=== PATIENT | male | born 1940 | race Caucasian/White ===

== ENCOUNTER 2024-09-29 10:55 | Day surgery (SDC) | payer OTHER, SELFPAY ==
--- NOTE | 2024-09-28 13:21 | HP.FOC2 ---
Focused History & Physical
Chief Complaint
HPI:
Chief Complaint:
HPI / Indication for Planned Procedure:
83 yo WM h/o bradycardia, permanent afib with SVR HR 30-50bpm, JAILENE/CPAP, DM2, COPD, HLD having fatigue and dyspnea from her slow HR. She presents for SC PPM.
Echocardiogram 2018 normal LV RV function- Stress testing 2021, normal myocardial perfusion with normal LVEF 59%- Not currently on rate controlling agents. [id number]: 4 (age, hypertension, diabetes). On Xarelto 20 mg daily for stroke risk reduction
Relevant Past Medical History: COPD or Pulmonary Disease, Diabetes, Sleep Apnea and Other (Afib with SVR)
Relevant Social History: ETOH (rare) and Tobacco Use (former)
Relevant Family History: Negative
Relevant Past Surgical History: Positive for (cholecystectomy�����deviated septum repair�����cataract removal�����MOH's Surgery)
Review of Systems
Review of Pertinent Systems: All Systems Negative Except for the Following Positives (fatigue, sob, after root canal had some dizziness)
Medication
See Medication form for detailed medications: Yes
Medication List (including Herbals & OTC):
Albuterol Sulfate HFA 108 (90 Base) MCG/ACT Aerosol Solution 1 puff as needed Inhalation every 4 hrs prn
Rosy PRN
amLODIPine Besylate 5 MG Tablet 1 tablet Orally Once a Day
Centrum Silver daily
Chlorpheniramine Maleate 4 MG Tablet 1 tablet as needed Orally every 6 hrs
Dulera(Mometasone Furo-Formoterol Fum) 100-5 MCG/ACT Aerosol as directed Inhalation
Fenofibrate 48 MG Tablet 1 tablet Orally Once a day , Notes to Pharmacist: decreased to 48 mg on 01/12/23
Lasix(Furosemide) 20 MG Tablet 1 tablet Orally Once a day
metFORMIN HCl 1000 MG Tablet 1 tablet with a meal Orally Twice a Day
Ramipril 5 MG Capsule 1 capsule Orally Twice a Day
Tylenol Extra Strength(Acetaminophen) 500 MG Tablet 1 tablet as needed Orally every 6 hrs
Vitamin B12 1000 MCG Tablet Extended Release 1 tablet Orally Once a day
Xarelto 20 MG Tablet 1 tablet with food Orally Once a day
Medications Reviewed: Yes
Allergies and Reactions
Patient has Allergies: Yes
Noted Allergies and Reactions:
Bactrim: lip swelling - Allergy
Sulfa Antibiotics: lip swelling - Allergy
Pertinent Physical Exam
All Other Systems: Negative
Head/Neck: Normal
Lungs: Normal
Heart: Normal
Abdomen: Normal
Extremities: Other (+2 pitting edema b/l)
Neurological: Normal
Diagnosis / Assessment
Symptomatic bradycardia
Plan / Procedure
Recommendations:-With regard to patient's symptomatic bradycardia without AV heather blocking agents in the setting of permanent atrial fibrillation, patient to benefit from implantation of single-chamber pacemaker. Given patient's likely high pacing
burden, patient to benefit from conduction system pacing lead. Resume Xarelto per cardiology post procedure
Anesthesia/Sedation to be done by Anesthesia Provider: Yes
[2024-09-29] VITALS (14 sets, daily range): BP systolic 136–186; BP diastolic 63–110
[2024-09-29 11:44] LABS: Glucose - Point of Care 103 mg/dl (70-99)
--- NOTE | 2024-09-29 14:11 | ITS.CL.PACE ---
Addendum entered and electronically signed by Rao Jesus DO Cipriano 10/06/24 07:38:
Addendum:
Symptomatic non-reversible bradycardia
Sick sinus syndrome
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
Original Note:
Senior Linux Engineer - Pacemaker Implant
Pacemaker Implant
Procedure Report:
Primary Care Doctor: Aj Pittman MD
Primary Inside Sales Assistant: Connor Arboleda MD
Procedure Date: 09/27/2024
Name of procedure:
1. Placement of a single-chamber pacemaker with left bundle area pacing lead for conduction system pacing
2. Subclavian venography
History:
1. Patient is a pleasant 83-year-old male with a past medical history significant for permanent atrial fibrillation, sleep apnea on CPAP, diabetes mellitus type 2, COPD, hyperlipidemia, valvular heart disease, and symptomatic irreversible
bradycardia.
2. Please refer to H&P for complete history.
Indication:
Symptomatic irreversible bradycardia in the setting of permanent atrial fibrillation
Methods:
After informed consent was obtained, the patient was brought to the EP laboratory in a postabsorptive, nonsedated state. Peripheral IV access was established. Prophylactic antibiotics were administered prior to incision. Continuous ECG, blood
pressure, and pulse oximetry were initiated. Cardioversion patch electrodes were placed on the patient's chest and back. A grounding patch was applied to the skin. Sedation was administered by anesthesia services.
In order to define the extrathoracic portion of the subclavian vein and exclude significant venous obstruction or anomalous anatomy, subclavian venography was performed prior to the procedure. Using the patient's left peripheral IV, contrast was
injected and images were recorded. The left subclavian vein and SVC were found to be widely patent.
The left chest was prepared and draped in a sterile fashion. A time-out was performed. Local anesthesia was injected in the subcutaneous tissue in the infraclavicular area. An incision was made medial to the deltopectoral groove. The subcutaneous
tissue was dissected the level of the prepectoral fascia. A subcutaneous pocket was created. Under fluoroscopic guidance and with the assistance of the images from the venogram, 2 separate venipunctures were made using micropuncture and modified
Seldinger technique. These were performed in the extrathoracic portion of the subclavian vein. Guidewires were passed and two peel-away sheaths were placed, and used to advance leads into the circulation.
Fluoroscopy was used to determine likely anatomic site for left bundle branch pacing. The Medtronic C315 sheath was used to deliver the Medtronic 3830 Selectsecure pacing lead with the helix exposed just exposed from the sheath tip during continuous
monitoring when pacemapping the septum during gentle clockwise rotation to obtain a paced QRS morphology of a W pattern in lead V1. Once the suspected optimal site was identified, lead deployment was performed with several rapid rotations as paced
QRS morphology was intermittently monitored until a paced QRS complex in lead V1 demonstrated development of an R wave (qR or rSR). Unipolar pacing impedance dropped by approximately 100 ohms suggesting it had reached the left ventricular
subendocardial. Stable VEgm injury current is present throughout lead position and at end of case. Final unipolar pacing impedance is 1200 Ohms. Unipolar pacing threshold is stable at 0.75 V @ 0.4 ms. The patient had pre-existing narrow QRS. Final
conduction system paced QRS complex duration is 109 ms, LVAT is 81 ms, and peak V5 -> peak V1 timing is 33 ms. The C315 sheath was slit under fluoroscopy ensuring lead position and stability.
The pocket was flushed with antibiotic solution and hemostasis was assured. The generator was connected to the leads and placed inside the pocket. The device was sutured to the fascia. Antibiotic envelope was used. Floseal was applied. The wound
was closed with 3 running layers of absorbable suture, and steri-strips were applied. Dressing applied over steri-strips in standard fashion.
Following the procedure, the patient was taken to the recovery area in stable condition. A chest x-ray to be obtained post procedure as routine.
Lead parameters and device programming:
- RV Lead (Medtronic, Model 3830, #[id number]): Sensing 6.1 mV, Pacing threshold 0.5 V at 0.4 ms, Imp 931 ohm
- Device: Medtronic, Model W1SR01 pacemaker (#[id number]), programmed VVIR lower rate 70, upper tracking rate 130 ppm
Conclusions:
1. Successful placement of a dual-chamber pacemaker with conduction system pacing (LBBAP)
2. Subclavian venography
Recommendations:
1. Admit
2. Chest x-ray today; [facility] in AM
3. IV antibiotics while the patient is admitted.
4. OK to resume home medications as indicated; plan to resume OAC 09/30/2024 PM if site and patient stable
5. Pressure dressing to be removed in AM, aquacell to remain until wound check
6. Follow-up will be arranged in the office in 7-10 days post-discharge
Rao Cota DO
Clinical Cardiac Expenditure Requisition Clerk
cc: Aj Pittman MD; Connor Arboleda MD
--- NOTE | 2024-09-29 16:43 | CM ---
CM following for DC planning needs.
Met w/ patient at bedside to complete initial assessment.
Pt. resides w/ spouse in a private home. He is functionally indep. w/ ADLs, mobility without the use of any assisted device.
Antic. DC to home once medically stable, without needs.
[2024-09-29 17:10] LABS: Glucose - Point of Care 87 mg/dl (70-99)
[2024-09-29] MEDS: TYLENOL 650 MG PO (17:32)
--- NOTE | 2024-09-29 17:34 | PTCARENOTE ---
Pt received post pacer at 1615. Pt awake, alert and oriented. Left chest pacer pressure dressing dry and intact. Pt sent for CXR as ordered. OOB to chair for dinner.
.
[2024-09-29] MEDS: SYMBICORT 80/4.5 MCG INHALER 2 PUFF INH (17:52)
[2024-09-29] MEDS: ZESTRIL 10 MG PO (18:03)
--- NOTE | 2024-09-29 21:44 | PTCARENOTE ---
Received patient at change of shift. Patient sitting in chair, awake, alert, and oriented. Left chest wall clean, dry, and intact. No swelling, ecchymosis. Immobilizer on. BP 155/76, V-Paced 60s-70s, 97% on room air. Discussed activity restrictions
with pacer placement. Patient verbalized understanding. Call martinez within reach.
[2024-09-29] MEDS: NORVASC 5 MG PO (22:22)
[2024-09-29] MEDS: ANCEF 5 IV (22:22)
[2024-09-29 22:38] LABS: Glucose - Point of Care 82 mg/dl (70-99)
[2024-09-30] MEDS: TYLENOL 650 MG PO ×2 (00:38→06:04)
[2024-09-30] MEDS: ANCEF 5 IV (05:47)
[2024-09-30 06:01] VITALS: BP 152/74
[2024-09-30 06:54] LABS: Hematocrit 36.2 % (39.0-52.0); Hemoglobin 11.8 g/dL (13.0-18.0); Mean Corp Hgb Conc. 32.6 g/dL (33.0-37.0); Mean Corpuscular Hgb 28.8 pg (27.0-31.0); Mean Corpuscular Volume 88.3 fL (80.0-94.0); Mean Platelet Volume 11.1 fL (7.4-10.4); Platelet Count 152 10^3/uL (130-400); Red Cell Dist. Width 15.7 % (11.5-14.5); White Blood Cell Count 5.8 10^3/uL (4.8-10.8)
[2024-09-30 07:22] LABS: Blood Urea Nitrogen 16 mg/dl (9-20); Calcium 9.1 mg/dl (8.4-10.2); Carbon Dioxide 20 mmol/L (22-30); Chloride 108 mmol/L (98-107); Estimated Creatinine Clearance 73 ml/min; Glucose 87 mg/dl (70-99); Magnesium 2.2 mg/dl (1.6-2.3); Potassium 4.3 mmol/L (3.5-5.1); Sodium 141 mmol/L (135-145); eGFR > 60.00
[2024-09-30 07:27] VITALS: BP 152/87
[2024-09-30 07:30] LABS: Glucose - Point of Care 88 mg/dl (70-99)
[2024-09-30] MEDS: SYMBICORT 80/4.5 MCG INHALER 2 PUFF INH (07:46)
--- NOTE | 2024-09-30 07:53 | W.PN.CARDCBS ---
Addendum entered and electronically signed by Darien Guerra MD 09/30/24 15:03:
I saw and examined the patient on morning rounds.
The Technical Rep's note was reviewed and I agree with the note.
Comment: Briefly, 83-year-old gentleman who underwent single-chamber permanent pacemaker implant on 09/29/[address] Hurtado
Physical exam was unremarkable this morning and pacemaker site was clean dry and intact
Review of overnight telemetry shows ventricularly paced rhythm at 70 bpm
Stable for discharge from my perspective with plan to resume Xarelto this evening per electrophysiology recommendations
Rest per Cherelle Finney
Addendum entered and electronically signed by Cherelle Finney PA-C 09/30/24 11:58:
[id number]
Original Note:
Today's Communication / Plan
-
Ambulate after eating breakfast
Follow blood pressures
Plan to resume Xarelto this evening and p.o. Lasix in the a.m.
Consider repeating echo as an outpatient
Hopeful for discharge later today
Outpatient cardiac follow-up arranged
Impression / Plan
-
Primary Network Planner: Dr. Rodney Fox
Primary EP: Dr. Cota
Assessment:
-Symptomatic bradycardia status post Medtronic pacemaker placement 09/29/2024
-Hypertension
-Permanent atrial fibrillation
-Anticoagulation with Xarelto
-Mitral regurgitation
-JAILENE on CPAP
-COPD
-Type 2 diabetes
-Hyperlipidemia
Echo 04/17/2019: Normal LV size and function, EF 55 to 60%, moderately dilated LA, mild MR, mild TR, PAP 37 mmHg
Plan:
-Patient underwent Medtronic pacemaker placement 09/29/2024
-Reports feeling a little bit woozy this morning, however has not yet eaten breakfast. Will ambulate after breakfast and reassess
-Chest x-ray without pneumothorax
-Pressure dressing removed. Left chest site with dressing clean dry and intact
-In V paced rhythm on review of telemetry overnight, several ventricular couplets noted
-Blood pressures elevated overnight, however currently holding outpatient Lasix 20 mg daily, would plan to resume 10/01. Continue amlodipine and RIAN inhibitor. Will follow blood pressure trends. Will encourage patient to follow blood pressures at
home and if remain elevated to call primary wirer maintenance for adjustment in antihypertensive regimen
-With murmur on exam. Last echo from 2018 with mild MR, would consider repeating as outpatient for reassessment
-Plan to resume Xarelto this evening. Hemoglobin 11.8
-Plan for discharge to home today
-Outpatient cardiac follow-up arranged
-Discussed with nursing
Progress Note - Network Planner
Subjective
Date of Service: September 30, 2024
Reports feels a little woozy this morning with ambulation or sitting up
Objective
Labs:
09/30/24 06:16
09/30/24 06:16
Labs
Hgb 11.8 g/dL (13.0-18.0) L 09/30/24 06:16
Hct 36.2 % (39.0-52.0) L 09/30/24 06:16
Plt Count 152 10^3/uL (130-400) 09/30/24 06:16
Sodium 141 mmol/L (135-145) 09/30/24 06:16
Potassium 4.3 mmol/L (3.5-5.1) 09/30/24 06:16
BUN 16 mg/dl (9-20) 09/30/24 06:16
Creatinine 0.8 mg/dL (0.7-1.3) 09/30/24 06:16
Glucose 87 mg/dl (70-99) 09/30/24 06:16
Vital Signs and I&O:
Vital Signs
Temp Pulse Resp BP Pulse Ox
97.6 F 73 16 152/74 95
09/30/24 07:30 09/30/24 07:52 09/30/24 07:52 09/30/24 06:01 09/30/24 07:30
Vital Signs
Temp Pulse Resp BP Pulse Ox
97.6 F 73 16 152/74 95
09/30/24 07:30 09/30/24 07:52 09/30/24 07:52 09/30/24 06:01 09/30/24 07:30
Physical Exam
Physical Exam
GEN: No distress, awake, alert, oriented x3
HEENT: supple, anicteric, mmm, EOMI
LUNGS: CTA bilaterally, no wheezes/rales
CV: Irreg, S1/S2, 2/6 apex murmur
ABD: soft, BS+, NT/ND
EXT: No cyanosis, clubbing, edema
NEURO: Gross non-focal
SKIN: Warm, pink, dry. No rash. Left chest dressing clean dry and intact
[2024-09-30] MEDS: TRICOR 48 MG PO (07:55)
[2024-09-30] MEDS: ZESTRIL 10 MG PO (07:56)
--- NOTE | 2024-09-30 08:31 | W.DS.TRANS ---
DC Summary - News Assignment Editor
-
Discharge Instructions:
Discharge Diagnosis/Procedures Pacemaker implant, hypertension
Diet Low Cholesterol,Diabetic, Carb Controlled
Activity Other activity
Additional Activity see device sheet
Driving Restrictions No driving for 1 week
Bathing Restrictions OK to Shower
Instructions:
Stand-Alone Forms: DC Inst - Implanted Device
Changes to Home Medications: No
Discharge Medications:
DC Medications w/original date entered in [employer]
acetaminophen 500 mg tablet 1,000 mg PO Q6H PRN pain 09/29/24
amlodipine 5 mg tablet 5 mg PO QPM 09/29/24
chlorpheniramine maleate 4 mg tablet 4 mg PO Q12H PRN allergies 09/29/24
cyanocobalamin (vitamin B-12) 1,000 mcg capsule 1,000 mcg PO DAILY 09/29/24
fenofibrate 50 mg capsule 48 mg PO QPM 09/29/24
furosemide 20 mg tablet 20 mg PO DAILY 09/29/24
metformin 1,000 mg tablet 1,000 mg PO BID 09/29/24
mometasone-formoterol HFA 100 mcg-5 mcg/actuation aerosol inhaler (Dulera) 2 puff inhalation BID 09/29/24
vhtgmxzpfjrw-knsljluw-xcopdo tablet 1 tab PO DAILY 09/29/24
ramipril 5 mg tablet 5 mg PO BID 09/29/24
rivaroxaban 20 mg tablet (Xarelto) 20 mg PO QPM 09/29/24
Home Medication Changes
Pending Results: No
[2024-09-30 10:14] VITALS: BP 135/79
[2024-09-30 10:39] LABS: Glycohemoglobin (HgbA1c) 5.6 % (4.0-5.6)
--- NOTE | 2024-09-30 10:50 | PTCARENOTE ---
Discharge teaching completed. Patient verbalized understanding. So coming to drive patient home. IV and telemetry removed. VSS, last BP 135/79
== END 2024-09-30 11:26 | disposition home or self-care (01) ==
LOC: CATH 10:55
PROVIDERS: Nurse Practitioner Adult Health; ATTENDING PHYSICIAN Internal Medicine Cardiovascular Disease; FAMILY PHYSICIAN Internal Medicine; OTHER PHYSICIAN Internal Medicine Interventional Cardiology
DX: I49.5 Sick sinus syndrome (principal); I44.1 Atrioventricular block, second degree; I48.21 Permanent atrial fibrillation; R00.1 Bradycardia, unspecified; E78.5 Hyperlipidemia, unspecified; J44.9 Chronic obstructive pulmonary disease, unspecified; E11.9 Type 2 diabetes mellitus without complications; G47.33 Obstructive sleep apnea (adult) (pediatric); Z79.01 Long term (current) use of anticoagulants; I10 Essential (primary) hypertension; Z88.2 Allergy status to sulfonamides; Z88.1 Allergy status to other antibiotic agents; I34.0 Nonrheumatic mitral (valve) insufficiency; Z79.51 Long term (current) use of inhaled steroids; Z79.84 Long term (current) use of oral hypoglycemic drugs; Z79.899 Other long term (current) drug therapy
CPT/HCPCS: 33207; 71045; 80048; 82962; 83036; 83735; 85027; 93005; 94640; C1769; C1786; C1887; C1892; C1898; Q9967